=== PATIENT | male | born 1960 | race Caucasian/White ===

== ENCOUNTER 2019-08-19 12:22 | Emergency (ER) | payer MEDICARE, MEDICAID, SELFPAY ==
[2019-08-19 12:26] VITALS: BP 172/66; PULSE 71; RESP 18; TEMP 36.8; O2SAT 96
--- NOTE | 2019-08-19 12:50 | ED.GENADUL_ITS ---
Discharge Plan Disposition Patient Disposition: HOME Condition: Fair Discharge Details Chief Complaint: RashLesion Clinical Impression: Cellulitis, Induration of skin Primary Care Provider: Belle Hernandez ED Provider: Isela Pearce Home Meds and New Rx's Prescriptions: New doxycycline hyclate 100 mg capsule 100 mg PO BID Qty: 14 RF: 0 Continued atorvastatin 40 mg Tablet 40 mg PO DAILY RF: 0 hydrocodone-acetaminophen 5-325 mg Tablet 1 tab PO BID PRNRF: 0 furosemide 80 mg Tablet 80 mg PO BID RF: 0 amlodipine 10 mg Tablet 10 mg PO DAILY RF: 0 gabapentin 300 mg Capsule 300 mg PO DAILY PRNRF: 0 duloxetine 60 mg Capsule,Delayed Release(Dr/Ec) 60 mg PO DAILY RF: 0 Basaglar KwikPen U-100 Insulin 100 unit/mL (3 mL) Insulin Pen 80 unit SUBCUT HS RF: 0 metolazone 5 mg Tablet 5 mg PO DAILY RF: 0 Discharge Instructions Instructions: Cellulitis (ED) Additional Instructions: Encourage hydration. Encourage elevation of your leg. Please take the doxycycline as prescribed. Even if symptoms improve, please take the entire course. Please follow-up with primary care this week for reevaluation. You have fever/chills, spreading swelling, shortness of breath, difficulty breathing, chest pain or other new/worsening symptoms please seek care urgently once again. Referrals: Belle Hernandez [Primary Care Provider] - Medical Decision Making Patient is a pleasant 58-year-old male presenting today with chief complaint of swelling to the left medial thigh. He reports that 4 days ago he started noting an area of induration that has become increasingly painful. He was seen by his primary care today for evaluation and ultrasound was performed as there is hugh rn for possible DVT. Patient does not have any history of DVT, no personal or family history of thrombus. Has not any fevers or chills. Patient states that he is not malnourished at all since being evaluated the ultrasound 2 days ago. However, felt that the area was more firm than it had been. Patient is on dialysis, most of dialysis just prior to arrival. On exam, patient has erythema to the medial left thigh, warmth and a focal area of induration. Area measured 5 x 8 cm. Full lymphadenopathy in the groin. Evaluated this with an ultrasound and did not see any evidence of abscess. I am able to follow the passage of this area and did not see any evidence of clot, veins are collapsible. No formal ultrasound is available today. She did have an ultrasound performed 2 days ago by his primary care as there was concern for clot and the clot was visualized. This is erythematous, warm, palpable lymphadenopathy, I feel that this is more consistent with infection. We did discuss obtaining a repeat ultrasound the patient does not want to wait for crime scene evidence technician and agrees that this is likely more infectious than thrombosis. He was given strict return precautions. We did discuss risks associated with the potential thrombus as well as what to look out for. He is able to return urgently with any new or worsening symptoms. Advised that he follow-up with his primary care this week for reevaluation. Patient will be placed on doxycycline. All of his questions and concerns were addressed and he is in agreement this plan. HPI General Mode of arrival: ambulatory . Date/Time Provider Initiated Documentation: 08/19/19 12:49 . Limitations to Documentation: no limitations . Information obtained by: patient and RN notes reviewed . History of Present Illness 58 year old M presents to the emergency department with the chief complaint of Left medial thigh swelling and erythema, described as severe, with intensity rated at 10. Quality is described as stabbing, and is localized to the left and lower extremity. Patient reports no radiation. Patient started experiencing this day(s) and it has been constant. Immobilization improves symptom(s), Movement worsens symptoms . Patient notes no other symptoms.; denies chest pain, cough, diaphoresis, fever/chills, loss of appetite, nausea/vomiting, shortness of breath and weakness. Patient did receive the following treatments prior to arrival, none Related Data Home Medications Medication Instructions Recorded Confirmed Basaglar NayeliikPen U-100 Insulin 80 unit SUBCUT HS 08/19/19 08/19/19 amlodipine 10 mg PO DAILY 08/19/19 08/19/19 atorvastatin 40 mg PO DAILY 08/19/19 08/19/19 doxycycline hyclate 100 mg PO BID #14 cap 08/19/19 duloxetine 60 mg PO DAILY 08/19/19 08/19/19 furosemide 80 mg PO BID 08/19/19 08/19/19 gabapentin 300 mg PO DAILY PRN 08/19/19 08/19/19 hydrocodone-acetaminophen 1 tab PO BID PRN 08/19/19 08/19/19 metolazone 5 mg PO DAILY 08/19/19 08/19/19 Previous Rx's Medication Instructions Recorded doxycycline hyclate 100 mg PO BID #14 cap 08/19/19 Allergies Allergy/AdvReac Type Severity Reaction Status Date / Time acetaminophen [From Percocet] Allergy Intermediate Itching Unverified 08/19/19 12:33 amoxicillin Allergy Intermediate Skin Rash Unverified 08/19/19 12:32 oxycodone [From Percocet] Allergy Intermediate Itching Unverified 08/19/19 12:33 codeine AdvReac Intermediate Other (See Unverified 08/19/19 12:34 Comment) General Stated Complaint: RashLesion AMINTA: 3 Review of Systems Constitutional Constitutional: Reports as per HPI, Denies chills and Denies fever(s) Musculoskeletal Musculoskeletal: Reports as per HPI Integumentary/Breasts Skin/Breast: Reports as per HPI Neurologic Neurologic: Reports as per HPI, Denies sensory deficit and Denies paresthesias [facility] Social History Smoking/Tobacco Use Status: Never Alcohol Intake: never Drug use: Never Substance use type: does not use Do you feel safe at home: Yes Do you feel safe in your relationship?: Yes Exam Const General: cooperative, healthy appearing, comfortable, no acute distress and well developed Nutritional Appearance: average body habitus and well nourished Orientation: alert and awake Resp Effort & Inspection: normal respiratory effort, able to speak in complete sentences and no respiratory distress Auscultation: clear to auscultation bilaterally Cardio Rate: regular rate Rhythm: regular rhythm Heart Sounds: S1 normal and S2 normal Skin Full body images: 1. Area of induration. This explored with an ultrasound and no pocket of fluid was noted. While no formal ultrasound was done, I was not able to appreciate any evidence of thrombus 2. Area of surrounding erythema. This area has mild tenderness elicited with palpation. Lymphadenopathy noted in the left groin Neuro General: alert and awake Cognition: normal cognition Speech: speech normal Gait: normal gait Sensory Exam: no sensory deficits noted Extrem Left lower extremity: full ROM, normal capillary refill, no joint enlargement and foot (Distal pulses intact, chronic peripheral neuropathy); abnormal to inspection (As above) Psych Appearance: grossly normal and well kempt Mental Status: mental status grossly normal Speech and Movement: speech and movement normal Course Vital Signs Vital signs: Vital Signs Temperature 36.8 C 08/19/19 12:26 Pulse 71 08/19/19 12:26 Respiratory Rate 18 08/19/19 12:26 Blood Pressure 172/66 H 08/19/19 12:26 Pulse Oximetry 96 08/19/19 12:26 Temperature 36.8 C 08/19/19 12:26 Temperature Source Skin 08/19/19 12:26 Pulse 71 08/19/19 12:26 Respiratory Rate 18 08/19/19 12:26 Respiratory Effort 08/19/19 12:39 Blood Pressure 172/66 H 08/19/19 12:26 Blood Pressure Position Sitting 08/19/19 12:26 Pulse Oximetry 96 08/19/19 12:26 Oxygen Delivery Method Room Air 08/19/19 12:26 Oxygen Flow Rate 0 08/19/19 12:26 Pain Level 10 08/19/19 12:26
[2019-08-19 13:16] VITALS: BP 170/76; PULSE 68; RESP 18; O2SAT 99
[2019-08-19] MEDS: Doxycycline Hyclate 100 MG CAP PO (13:18)
== END 2019-08-19 13:25 | disposition home or self-care (01) ==
LOC: ER 13:16
PROVIDERS: Emergency Provider Physician Assistant; PCP Family Medicine
DX: L03.116 Cellulitis of left lower limb (principal); R23.4 Changes in skin texture
CPT/HCPCS: 99283

== ENCOUNTER 2020-03-05 12:23 | Emergency (ER) | payer MEDICARE, MEDICAID, SELFPAY ==
[2020-03-05 12:24] VITALS: BP 152/86; PULSE 73; TEMP 36.2; O2SAT 97
--- NOTE | 2020-03-05 13:07 | DI.US_ITS ---
EXAM: US SOFT TISSUE EXTREMITY CLINICAL HISTORY: right foot, r/o FB, wound noted rt heel TECHNIQUE: Ultrasound performed using standard protocol. COMPARISON: No exams were available for comparison FINDINGS: Ultrasound examination was performed to evaluate the possibility of foreign body in the heel. Ultras ound evaluation of the region of suspected foreign body shows an approximately 1-2 millimeter in grea test diameter echogenic focus, this may represent a small foreign body fragment. No other soft tissu e abnormality seen. IMPRESSION: DATA REPOSITORY:
--- NOTE | 2020-03-05 13:15 | W.ED.GENAD ---
Discharge Plan Disposition Patient Disposition: HOME Condition: Stable Discharge Details Chief Complaint: PsychEval Clinical Impression: Depression, Foreign body in foot, right Primary Care Provider: Belle Hernandez ED Provider: Carlotta Chaudhry Home Meds and New Rx's Prescriptions: No Action atorvastatin 40 mg Tablet 40 mg PO DAILY RF: 0 hydrocodone-acetaminophen 5-325 mg Tablet 1 tab PO BID PRNRF: 0 furosemide 80 mg Tablet 80 mg PO BID RF: 0 amlodipine 10 mg Tablet 10 mg PO DAILY RF: 0 gabapentin 300 mg Capsule 300 mg PO DAILY PRNRF: 0 duloxetine 60 mg Capsule,Delayed Release(Dr/Ec) 60 mg PO DAILY RF: 0 Basaglar KwikPen U-100 Insulin 100 unit/mL (3 mL) Insulin Pen 80 unit SUBCUT HS RF: 0 metolazone 5 mg Tablet 5 mg PO DAILY RF: 0 doxycycline hyclate 100 mg capsule 100 mg PO BID Qty: 14 RF: 0 Discharge Instructions Instructions: Depression (ED) Additional Instructions: You should be receiving a call at approximately 630 tonight for check-in Please followup with your PCP. Please follow-up with outpatient councellor as discussed You have an appointment with podiatry Dr. Keane at 9:00 on Wednesday morning for the foreign body noted in your foot. Return for any worsening, concerns or alarming symptoms sooner if needed Discharge Data Discharge Date/Time-TO BE ENTERED AT DEPARTURE: 03/05/20 14:08 Medical Decision Making <DEACON Earl - Last Filed: 03/09/20 21:38> This is a 59-year-old patient who is dealing with multiple medical comorbidities who made a suicidal statement today while at dialysis. Patient presents to the emergency room further concerns of patient safety. Patient reports he has no intention to harm himself but he did make an on his suicidal statement as he does have suicidal ideation when dealing with severe and chronic pain. Patient reports dialysis is cumbersome and they are discussing increasing the duration of his dialysis. 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 Despite patient's suicidal ideation he has absolutely no intention to harm himself however given his statement and his history of depression I do feel appropriate that we should obtain mental health evaluation today. Patient agrees with this plan of care. Regarding his medical issues patient does have a new prescription for an additional antidepressant med and pain medication which his primary care doctor has sent to the pharmacy due to be picked up today. Patient does intend to take these medications. Patient is in contact with his PCP regarding these concerns. Regarding the wound on patient's right leg will plan to expedite his ultrasound and obtain his ultrasound today for concern of foreign body. Mental health contacted. They will discuss and evaluate the patient Patient's ultrasound does reveal retained foreign body in his foot. Discussed with [facility] wound center. They will arrange for follow-up and manage patient's retained foreign body. Mental health feels patient is safe for discharge home. Intake was initiated to arrange for local counselor which I feel patient would significantly benefit from. They will check in with patient later tonight and help expedite outpatient follow-up. The patient was stable and requested discharge. Prior to discharge, my usual and customary return precautions were reviewed with the patient - this included follow-up instructions and reasons to return to the Emergency Department if conditions worsens, does not improve as expected, or other new concerns arise. <Yobani Rosenthal MD - Last Filed: 03/05/20 13:28> Patient seen, examined, discussed with Ms. Cruz. I agree with her assessment, plan, consultation with mental health. HPI <DEACON Earl - Last Filed: 03/09/20 21:38> General Date/Time Provider Initiated Documentation: 03/05/20 13:06. HPI Narrative: This is a 59-year-old patient presenting to the emergency room for psych evaluation. Patient made suicidal statement while he was at dialysis this morning. Patient reported that he would shoot himself in the head. When asked patient does report he has suicidal ideations as he is increasingly depressed. Patient denies any specific intention. Patient reports specifically that he would never kill himself. Patient has no homicidal ideation. Patient does report baseline depression. Patient reports he is currently been taking Cymbalta for the last 2 years for depression. Patient is reporting he has been on dialysis for approximately 1-1/2 years. Dialysis is discussing increasing the duration of his dialysis treatments. Patient has been dealing with chronic lower extremity pain for which he has been taking Vicodin. Patient reports that his primary care doctor did call in prescriptions to increase his pain medication and to provide additional depression medication. Prescriptions are waiting at the pharmacy. Patient did plan to roll picker these prescriptions today. Patient has been in contact with his PCP regarding his worsening depression and chronic lower extremity pain. Patient reports suicidal ideation specifically is worse when dealing with extreme pain which is difficult to tolerate. 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 Regarding patient's medical concerns he has no focal medical complaints with the exception of his foot for which he is due to have an ultrasound tomorrow which he requests we do today as he is due to see wound center, he has been dealing with a wound on his heel and has concern for retained foreign body as he stepped on a piece of glass, wound festered as he has no sensation is feet bilaterally, he had resulting wound which was infected, glass was removed however wound center is questioning any retained glass products. Denies fever, chills, nausea, vomiting, chest pain difficulty breathing shortness of breath or wheezing. Denies abdominal pain. Related Data Home Medications Medication Instructions Recorded Confirmed Basaglar KwikPen U-100 Insulin 80 unit SUBCUT HS 08/19/19 08/19/19 amlodipine 10 mg PO DAILY 08/19/19 08/19/19 atorvastatin 40 mg PO DAILY 08/19/19 08/19/19 doxycycline hyclate 100 mg PO BID #14 cap 08/19/19 duloxetine 60 mg PO DAILY 08/19/19 08/19/19 furosemide 80 mg PO BID 08/19/19 08/19/19 gabapentin 300 mg PO DAILY PRN 08/19/19 08/19/19 hydrocodone-acetaminophen 1 tab PO BID PRN 08/19/19 08/19/19 metolazone 5 mg PO DAILY 08/19/19 08/19/19 Previous Rx's Medication Instructions Recorded doxycycline hyclate 100 mg PO BID #14 cap 08/19/19 Allergies Allergy/AdvReac Type Severity Reaction Status Date / Time acetaminophen [From Percocet] Allergy Intermediate Itching Unverified 08/19/19 12:33 amoxicillin Allergy Intermediate Skin Rash Unverified 08/19/19 12:32 oxycodone [From Percocet] Allergy Intermediate Itching Unverified 08/19/19 12:33 codeine AdvReac Intermediate Other (See Unverified 08/19/19 12:34 Comment) General Stated Complaint: PsychEval AMINTA: 2 Review of Systems <DEACON Earl - Last Filed: 03/09/20 21:38> All systems reviewed & are unremarkable except as noted in HPI and below PFSH <DEACON Earl - Last Filed: 03/09/20 21:38> Social History Smoking/Tobacco Use Status: Never Alcohol Intake: never Drug use: Never Substance use type: does not use Do you feel safe at home: Yes Do you feel safe in your relationship?: Yes Exam <DEACON Earl - Last Filed: 03/09/20 21:38> Narrative Exam Narrative: CONST: Healthy appearing patient, in no acute distress. Well hydrated. Alert and oriented. HENMT: Head nomocephalic, normal to inspection. Atraumatic. Hearing grossly normal. EYES: General normal appearance. Alignment normal. Eyelids normal. Conjunctiva normal. NECK: Normal visual inspection. FROM. Trachea midline. No Midline tenderness. CHEST: Normal insepection of the chest. RESP: Normal respiratory effort. Speaking full sentences. No cough. No audible wheezing. No retractions. Breath sounds are clear, full and equal bilaterally. CARDIO: No JVD. No murmur. Regular rate and rhythm MUSCULOSKELETAL: Normal Gait. FROM of all extremities. Patient has a heel wound noted with mild erythema seemingly healing, minimal drainage. SKIN: Normal. Dry. No rashes. NEURO: Alert and awake. Speech clear. PSYCH: Normal affect. Cooperative. Pleasant, jovial. Course <DEACON Earl - Last Filed: 03/09/20 21:38> Vital Signs Vital signs: Vital Signs Temperature 36.2 C L 03/05/20 12:24 Pulse 73 03/05/20 12:24 Blood Pressure 152/86 H 03/05/20 12:24 Pulse Oximetry 97 03/05/20 12:24 Temperature 36.2 C L 03/05/20 12:24 Temperature Source Temporal Artery Scan 03/05/20 12:24 Pulse 73 03/05/20 12:24 Respiratory Effort Non-Labored 03/05/20 12:33 Blood Pressure 152/86 H 03/05/20 12:24 Blood Pressure Position Sitting 03/05/20 12:24 Pulse Oximetry 97 03/05/20 12:24 Oxygen Delivery Method Room Air 03/05/20 12:24 Oxygen Flow Rate 0 03/05/20 12:24 Pain Level 0 03/05/20 12:24
--- NOTE | 2020-03-05 13:33 | PDOC.CMSAFED ---
- If Service Date Differs Date of service: 03/05/20 Time of Service: 13:33 Care Management Safety Plan Chief Complaint: Adam is a 59 year old male who comes to the ED from dialysis. Adam lives in [place], [place], with his , Baylee, and his inmhsu-[id number]. 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 Adam is struggling with his inability to work, chronic pain and on-going medical problems, and difficulty getting along with his [id number]. Adam admits to feeling depressed and having intermittent suicidal thoughts, but denies intent to harm himself. Adam meets with Berto, [facility] general utility worker, for a telehealth evaluation and is deemed safe to return home by [facility]. VOLUNTARY FOR INPATIENT PSYCHIATRIC STABILIZATION. Patient is appropriate in all interactions since arriving at [facility]; Patient has demonstrated appropriate coping and communication skills, has articulated her needs and concerns and is fully engaged during staff interactions. Safety plan has been established with patient, and care team, to adhere to patient goals, identify restrictions based on behavioral status, address nutrition, and determine allowed personal belongings, tools for hygiene and personal care. Determine level of activity including ambulation, level of supervision, visitors, and determine privileges based on behaviors and level of engagement by patient. SAFETY PLAN: 1. Will remain on suicide precautions and in paper clothes 2. Will remain in room under direct supervision of one-on-one staff at all times provided by [employer]; WILLIAM, TECHNICAL STAFF ASSISTANT floor space allocator. 3. May have paper cups, plates, finger foods as well as a metal spoon with which to eat meals. [facility] staff will be responsible for removing spoon once patient is done eating. 4. Follow [facility] Management of the Admitted Behavioral Health Patient policy. 5. Comfort bath system only. 6. No personal belongings 7. Visitors-No visitors at this time 8. Activities: Soft tip markers, paper, books, and other activities at nursing discretion. 9. Bathroom privileges: While in the ED, must be accompanied by staff. 10. Phone: No phone privileges at this time. 11. Due to VOLUNTARY status, if patient wishes to leave [facility], the [facility] utility worker woolen mill must be contacted to re-evaluate patient prior to patient exiting the building. Patient is currently voluntarily at [facility] and seeking inpatient admission when a bed becomes available. [facility] Frontline Chipper Operator will continue seeking placement. Please contact the [facility] Worker Osteopathy Doctor ([phone]) and [facility] Chipper Operator ([phone]) for any needed changes in the Safety Plan. Safety plan has been provided to interdepartmental care team.
[2020-03-05 14:14] LABS: Abs Immature Grans 0.06 k/cumm (0.0-0.09); Absolute Basophil Count 0.03 k/cumm (0.0-0.2); Absolute Eosinophil Count 0.13 k/cumm (0.0-0.7); Absolute Lymphocyte Count 0.57 k/cumm (1.2-3.4); Absolute Monocyte Count 0.52 k/cumm (0.11-0.7); Absolute Neutrophil Count 4.75 k/cumm (1.2-6.7); Basophils % 0.5; Eosinophils % 2.1; HGB 9.5 g/dL (13.5-17.5); Lymphocytes % 9.4; Mean Corp. HGB Concentration 30.6 g/dL (32.0-36.0); Mean Corpuscular Hemoglobin 26.7 pg (27.0-33.0); Mean Corpuscular Volume 87.1 fL (80-95); Mean Platelet Volume 8.9 fL (8.0-11.0); Monocytes % 8.6; Neutrophils % 78.4; Platelet Count 207 x1000/uL (130-400); RBC 3.56 m/cumm (4.50-6.00); RBC Distribution Width 17.6 % (11.8-14.1); White Blood Cell Count 6.06 k/cumm (4.4-10.8)
--- NOTE | 2020-03-05 14:24 | PDOC.MHCN ---
Date of service: 03/05/20 Time of Service: 13:30 Mental Health Crisis Note Presenting Issue How did you arrive at the ED and why did you come: The patient is assessed via telehealth following ED admit on 03/05/20 for suicidal ideation and statement issued of 'blowing brains out' while receiving dialysis treatment today. Precipitating Factors The patient is a 59yo male that resides with his and [id number]. 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 He reports interpersonal conflict in the home environment between himself and his gsxzoz-bc-dxe and general difficulties adjusting to lack of a schedule and not working full-time. The patient presents sitting up and is observed to be eating. Grooming is somewhat poor. He is A/Ox4 with immediate, recent, and remote memory intact. Mood is reported as depressed with affect that is euthymic. He presents as calm and cooperative. He is appropriately responsive to questions with speech that is clear, coherent, and no latency of response. No evidence of delusions, hallucinations (A/V/O/S) or psychotic thought process. He denies current SI/HI, intent or plan. He reports that while receiving dialysis treatment today he made a comment of ending his life by 'blowing his brains out' and states that this comment was made out of frustration he is experiencing in relation to chronic pain management issues, environmental stressors in the home environment, and difficulties acclimating to unemployment. He reports that his SI increases when his pain is poorly managed and states that he talks the talk but never walks the walk in reference to intent. He does not report history self-harming behaviors, suicide attempts, or receiving in-patient treatment in the past. Disposition BEHAVIOR: Calm, cooperatie, appropriate in all interactions. EYE CONTACT: Good MOOD: Depressed AFFECT: Euthymic APPETITE: No reported issues. Patient is observed to be eating during assessment. SLEEP(trouble falling/staying asleep: No reported issues Plan The patient does not present as an imminent danger to himself or others and does not currently meet criteria for in-patient hospitalization. He has declined [facility] intake and need for additional services today through the agency today. He is receptive to receiving additional counseling resources and has expressed interest in connecting with [employer] to see about job training and pursuing an alternative work arrangement with consideration of his chronic pain and physical limitations. This copywriter will send a printed a listing of counselors operating in the [facility] to address provided. Emergency contact information for [facility] has been provided and the patient will call as needed with any questions or concerns. The patient has been advised to call 911 if he feels unsafe or if his symptoms rise to the level of emergent. Signature Clinician's Name/Title: Abram Rodriguez [facility] Clinician
[2020-03-05 14:28] LABS: Anisocytosis 1+; Diff Comment RBC Morph Reviewed; Hypochromasia 1+; Microcytosis 1+; Polychromasia Present
[2020-03-05 14:29] LABS: ALT 27 U/L (16-63); AST 18 U/L (15-37); Albumin 3.1 g/dL (3.4-5.0); Alkaline Phosphatase 143 U/L (46-116); Anion Gap 5.8 mmol/L (3-11); BUN 22 mg/dL (7-18); Bilirubin, Total 0.8 mg/dL (0.2-1.0); CO2 35.2 mmol/L (21.0-32.0); Chloride 92 mmol/L (98-107); Estimated GFR 15.17 (mL/min/1.73m2); Glucose 203 mg/dL (74-106); PHOSPHORUS 3.9 mg/dL (2.6-4.7); Poikilocytes 1+; Potassium 4.4 mmol/L (3.5-5.1); Sodium 133 mmol/L (136-145)
[2020-03-05 14:32] LABS: CREATININE 4.04 mg/dL (0.70-1.30)
== END 2020-03-05 14:08 | disposition home or self-care (01) ==
PROVIDERS: Emergency Provider Physician Assistant; PCP Family Medicine
DX: R45.851 Suicidal ideations (principal); M79.5 Residual foreign body in soft tissue; Z18.81 Retained glass fragments; F32.9 Major depressive disorder, single episode, unspecified; M79.605 Pain in left leg; G89.29 Other chronic pain; Z63.8 Other specified problems related to primary support group; Z56.0 Unemployment, unspecified; Z99.2 Dependence on renal dialysis; N18.6 End stage renal disease
CPT/HCPCS: 36415; 76881; 80053; 99285; 83735; 84100; 85025; 99284